=== PATIENT | male | born 1995 | race Caucasian/White ===

== ENCOUNTER → 2021-01-14 08:47 | Outpatient (BNVA) | payer MEDICAID, SELFPAY | PROVIDERS: PCP Emergency Medicine; Visit Provider Specialist | DX: G40.309 Generalized idiopathic epilepsy and epileptic syndromes, not intractable, without status epilepticus (principal); G43.709 Chronic migraine without aura, not intractable, without status migrainosus; F39 Unspecified mood [affective] disorder; Z79.899 Other long term (current) drug therapy; Z87.891 Personal history of nicotine dependence | CPT/HCPCS: 99204; 99205 ==